=== PATIENT | female | born 1985 | race African-American/Black ===

== ENCOUNTER 2022-04-10 06:57 | Emergency (ER) | payer OTHER ==
[2022-04-10] MEDS ORDERED: ACET/COD 300 MG/30 MG STARTER PACK 6 TAB BTL PO STA (07:13)
--- NOTE | 2022-04-10 07:15 | ED ---
ENT HPI - General Chief complaint: Dental/Oral Stated complaint: Dental Pain, Swelling Time Seen by Provider: 04/10/22 06:59 Source: patient, RN notes reviewed Mode of arrival: ambulatory Limitations: no limitations - History of Present Illness Initial comments: 37-year-old female presents emergency from chief complaint right lower dental pain. Patient states symptoms started over nighttime. Patient states she has swelling, pain right lower. Patient has known bad tooth in the back. Patient states she has appointment with her dentist on the of this month. Patient reports prior issues with pain meds and which she states is only when she mixed pain meds. Patient denies any. Chills and night sweats no difficulty swallowing no other associated complaints. - Related Data Home Medications Medication Instructions Recorded Confirmed Hydrocodone/Acetaminophen [[place] 1 tab PO Q6H 11/01/13 12/29/13 5-325] Sertraline [Zoloft] 50 mg PO DAILY 12/09/13 12/29/13 Previous Rx's Medication Instructions Recorded Ibuprofen [Motrin] 600 mg PO Q8HR PRN #20 tab 04/10/22 Penicillin V Potassium [Pen Vee K] 500 mg PO QID #40 tablet 04/10/22 Allergies Allergy/AdvReac Type Severity Reaction Status Date / Time acetaminophen [From Vicodin] Allergy Unknown Verified 04/10/22 06:59 hydrocodone bitartrate Allergy Unknown Verified 04/10/22 06:59 [From Vicodin] sulfamethoxazole Allergy Unknown Verified 04/10/22 06:59 [From Bactrim] tramadol Allergy Unknown Verified 04/10/22 06:59 trimethoprim [From Bactrim] Allergy Unknown Verified 04/10/22 06:59 Review of Systems ROS Statement: Those systems with pertinent positive or pertinent negative responses have been documented in the HPI. ROS Other: All systems not noted in ROS Statement are negative. Past Medical History Past Medical History: No Reported History History of Any Multi-Drug Resistant Organisms: None Reported Past Surgical History: Orthopedic Surgery Past Psychological History: Anxiety, Depression Smoking Status: Never smoker Past Alcohol Use History: None Reported Past Drug Use History: Marijuana General Exam Limitations: no limitations General appearance: alert, in no apparent distress Head exam: Present: atraumatic, normocephalic, normal inspection Eye exam: Present: normal appearance, PERRL, EOMI. Absent: scleral icterus, conjunctival injection, periorbital swelling ENT exam: Present: mucous membranes moist, TM's normal bilaterally, normal external ear exam. Absent: normal oropharynx (Right-sided facial swelling, right lower impacted molar with no drainable abscess, dental erosion), mucous membranes dry Neck exam: Present: normal inspection, full ROM. Absent: tenderness, meningismus, lymphadenopathy Respiratory exam: Present: normal lung sounds bilaterally. Absent: respiratory distress, wheezes, rales, rhonchi, stridor Cardiovascular Exam: Present: regular rate, normal rhythm, normal heart sounds. Absent: systolic murmur, diastolic murmur, rubs, gallop, clicks Course Vital Signs 04/10/22 06:59 Temperature 98.2 F Pulse Rate 89 Respiratory 16 Rate Blood Pressure 149/106 O2 Sat by Pulse 98 Oximetry Medical Decision Making - Medical Decision Making 37-year-old presented for dental pain. Patient has underlying dental infection. Patient was started on Pen-Vee K, given pain control she has a follow-up with her dentist return parameters were discussed. Disposition Clinical Impression: Impacted molar, Toothache Disposition: HOME SELF-CARE Instructions (If sedation given, give patient instructions): Dental Abscess (ED) Additional Instructions: Please return to the Emergency Department if symptoms worsen or any other concerns. Prescriptions: Ibuprofen [Motrin] 600 mg PO Q8HR PRN #20 tab PRN Reason: Pain Penicillin V Potassium [Pen Vee K] 500 mg PO QID #40 tablet Is patient prescribed a controlled substance at d/c from ED?: No Referrals: None,Stated [Primary Care Provider] - 1-2 days Time of Disposition: 07:11
[2022-04-10 07:32] VITALS: BP 156/107; PULSE 80; RESP 18; TEMP 98.3
== END 2022-04-10 07:34 | disposition home or self-care (01) ==
LOC: EC 06:57
DX: K01.1 Impacted teeth (principal); F41.9 Anxiety disorder, unspecified; F32.A Depression, unspecified; F12.90 Cannabis use, unspecified, uncomplicated; Z88.2 Allergy status to sulfonamides; Z88.6 Allergy status to analgesic agent; Z88.5 Allergy status to narcotic agent
CPT/HCPCS: 99282

== ENCOUNTER 2023-05-28 15:11 | Emergency (ER) | payer BC ==
[2023-05-28] MEDS ORDERED: KETOROLAC 15 MG/ML 1 ML VIAL IM STA (16:50)
--- NOTE | 2023-05-28 16:52 | ED ---
Extremity Problem HPI - General Stated complaint: Pain in left shoulder Time Seen by Provider: 05/28/23 16:42 Source: patient, RN notes reviewed - History of Present Illness Initial comments: Patient is a 38-year-old female presented ER with chief complaint of left shoulder pain. Patient states pain started last 05-19-23. Patient states it is a burning pulling sensation in her mid to upper back. Patient states it is made it difficult for her to move her left upper extremity. Patient denies any numbness or tingling. Patient denies any known trauma. Patient denies any neck pain, chest pain, shortness of breath, fevers, chills, night sweats. 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 Patient is been taking [id number] Tylenol and Motrin with no relief. She also has been icing and using heat. - Related Data Home Medications Medication Instructions Recorded Confirmed Hydrocodone/Acetaminophen [[place] 1 tab PO Q6H 11/01/13 12/29/13 5-325] Sertraline [Zoloft] 50 mg PO DAILY 12/09/13 12/29/13 Previous Rx's Medication Instructions Recorded Ibuprofen [Motrin] 600 mg PO Q8HR PRN #20 tab 04/10/22 Penicillin V Potassium [Pen Vee K] 500 mg PO QID #40 tablet 04/10/22 Cyclobenzaprine [Flexeril] 10 mg PO HS #10 tab 05/28/23 Allergies Allergy/AdvReac Type Severity Reaction Status Date / Time sulfamethoxazole Allergy Unknown Verified 05/28/23 16:52 [From Bactrim] tramadol Allergy Unknown Verified 05/28/23 16:52 trimethoprim [From Bactrim] Allergy Unknown Verified 05/28/23 16:52 Review of Systems ROS Statement: Those systems with pertinent positive or pertinent negative responses have been documented in the HPI. ROS Other: All systems not noted in ROS Statement are negative. Past Medical History Past Medical History: No Reported History History of Any Multi-Drug Resistant Organisms: None Reported Past Surgical History: Orthopedic Surgery Past Psychological History: Anxiety, Depression Smoking Status: Never smoker Past Alcohol Use History: None Reported Past Drug Use History: Marijuana General Exam General appearance: alert, in no apparent distress Head exam: Present: atraumatic, normocephalic, normal inspection Eye exam: Present: normal appearance, PERRL, EOMI. Absent: scleral icterus, conjunctival injection, periorbital swelling Neck exam: Present: normal inspection. Absent: tenderness, meningismus, lymphadenopathy Respiratory exam: Present: normal lung sounds bilaterally. Absent: respiratory distress, wheezes, rales, rhonchi, stridor Cardiovascular Exam: Present: regular rate, normal rhythm, normal heart sounds. Absent: systolic murmur, diastolic murmur, rubs, gallop, clicks Extremities exam: Present: other (Limited range of motion of left upper extremity due to pain. No rashes or erythema present. 2+ left radial pulse.) Back exam: Present: tenderness (Left trapezius muscle) Course Vital Signs 05/28/23 05/28/23 16:45 19:18 Temperature 98.8 F 98 F Pulse Rate 89 79 Respiratory 18 16 Rate Blood Pressure 146/104 128/78 O2 Sat by Pulse 100 98 Oximetry Medical Decision Making - Medical Decision Making Was pt. sent in by a medical professional or institution (, PA, JACKHAMMER SPLITTER OPERATOR, urgent care, hospital, or [facility]...) When possible be specific @ -No Did you speak to anyone other than the patient for history (EMS, parent, family, police, friend...)? What history was obtained from this source @ -No Did you review nursing and triage notes (agree or disagree)? Why? @ -I reviewed and agree with nursing and triage notes Were old charts reviewed (outside hosp., previous admission, EMS record, old EKG, old radiological studies, urgent care reports/EKG's, [facility] records)? Report findings @ -No old charts were reviewed Differential Diagnosis (chest pain, altered mental status, abdominal pain women, abdominal pain men, vaginal bleeding, weakness, fever, dyspnea, syncope, headache, dizziness, GI bleed, back pain, seizure, CVA, palpatations, mental health, musculoskeletal)? @ -Differential Back Pain: Strain, zoster, cauda equina syndrome, epidural abscess, vertebral osteomyelitis, discitis, fracture, subluxation, disc herniation, DJD, spinal stenosis, dissection, AAA, pancreatitis, peptic ulcer disease, pyelonephritis, kidney stone, this is not meant to be an all-inclusive list. EKG interpreted by me (3pts min.). @ -None X-rays interpreted by me (1pt min.). @ -Cervical spine x-ray shows moderate spondylitic changes throughout especially in the mid to low cervical spine. There is reversal of the normal cervical lordosis. Left shoulder x-ray shows no acute osseous abnormality. CT interpreted by me (1pt min.). @ -None done U/S interpreted by me (1pt. min.). @ -None done What testing was considered but not performed or refused? (CT, X-rays, U/S, labs)? Why? @ -None What meds were considered but not given or refused? Why? @ -None Did you discuss the management of the patient with other professionals (professionals i.e. Dr., PA, JACKHAMMER SPLITTER OPERATOR, lab, RT, psych nurse, social media assistant, instructor military science, teacher, digital marketing officer, director of casework services)? Give summary @ -No Was smoking cessation discussed for >3mins.? @ -No Was critical care preformed (if so, how long)? @ -No Were there social determinants of health that impacted care today? How? (Homelessness, low income, unemployed, alcoholism, drug addiction, transportation, low edu. Level, literacy, decrease access to med. care, intermediate, rehab)? @ -No Was there de-escalation of care discussed even if they declined (Discuss DNR or withdrawal of care, Hospice)? DNR status @ -No What co-morbidities impacted this encounter? (DM, HTN, Smoking, COPD, CAD, Cancer, CVA, ARF, Chemo, Hep., AIDS, mental health diagnosis, sleep apnea, morbid obesity)? @ -None Was patient admitted / discharged? Hospital course, mention meds given and route, prescriptions, significant lab abnormalities, going to OR and other pertinent info. @ -Discharge. Patient is a 38-year-old female presented ER with chief complaint of left shoulder pain. Upon examination, patient's vital signs are stable. Physical exam was significant for limited active range of motion of left shoulder due to pain. Patient was neurovascularly intact. There is pain to palpation of left trapezius muscle. Patient denied any chest pain or shortness of breath. Patient received IM Toradol for pain control, with improvement. Cervical spine x-ray shows moderate spondylitic changes throughout especially in the mid to low cervical spine. There is reversal of the normal cervical lordosis. Left shoulder x-ray shows no acute osseous abnormality. I discussed imaging findings with the patient. I encouraged her to continue to take [id number] Tylenol and Motrin. I also advised to massage and continued motion. Patient will be prescribed Flexeril. I educated patient on side effects of muscle relaxers. Patient will be discharged in stable condition with follow-up to PCP. Return parameters were discussed. Patient expressed understanding and agreement with care plan. Undiagnosed new problem with uncertain prognosis? @ -No Drug Therapy requiring intensive monitoring for toxicity (Heparin, Nitro, Insulin, Cardizem)? @ -No Were any procedures done? @ -No Diagnosis/symptom? @ -Muscle spasm Acute, or Chronic, or Acute on Chronic? @ -Acute Uncomplicated (without systemic symptoms) or Complicated (systemic symptoms)? @ -Uncomplicated Side effects of treatment? @ -No Exacerbation, Progression, or Severe Exacerbation? @ -No Poses a threat to life or bodily function? How? (Chest pain, USA, CT, pneumonia, PE, COPD, DKA, ARF, appy, cholecystitis, CVA, Diverticulitis, Homicidal, Suicidal, threat to staff... and all critical care pts) @ -No - Radiology Data Radiology results: report reviewed, image reviewed Disposition Clinical Impression: Muscle spasm Disposition: HOME SELF-CARE Condition: Stable Instructions (If sedation given, give patient instructions): Muscle Spasm (ED) Additional Instructions: Please continue to use [id number] Tylenol and Motrin for pain control. Please be aware that Flexeril may make you drowsy.Please return to the Emergency Department if symptoms worsen or any other concerns. Prescriptions: Cyclobenzaprine [Flexeril] 10 mg PO HS #10 tab Is patient prescribed a controlled substance at d/c from ED?: No Referrals: Richar Smith MD [Primary Care Provider] - 1-2 days Time of Disposition: 18:44
--- NOTE | 2023-05-28 18:06 | XR ---
EXAMINATION TYPE: XR cervical spine 5 views comp, XR shoulder complete 3 views LT DATE OF EXAM: 05/28/2023 COMPARISON: None HISTORY: 38-year-old female left shoulder pain FINDINGS: Cervical spine: No predental space widening or prevertebral soft tissue swelling. Moderate dissection plate degenerat elizabeth change C5-C7 levels. Reversal of the normal cervical lordosis but with preserved alignment. Facet and uncovertebral joint arthropathy mid to lower cervical spine. On the right, mild bony neuroforami nal narrowing C5-C6. Limited obliquity for assessment of the left-sided neural foramen. Normal odonto id view. Left shoulder: AC joint is congruent and intact. Subacromial space is preserved. No tendinous or bursal calcificatio ns. No acute fracture, subluxation, or dislocation. IMPRESSION: 1. Cervical spine: Moderate spondylotic change throughout, especially mid to lower cervical spine. Sa tisfactory alignment. Reversal of the normal cervical lordosis could be positional or due to muscle s pasm. 2. Left shoulder: No acute osseous abnormality seen.
[2023-05-28 19:32] VITALS: BP 128/78; PULSE 79; RESP 16; TEMP 98
== END 2023-05-28 19:18 | disposition home or self-care (01) ==
LOC: EC 15:11
DX: M62.838 Other muscle spasm (principal); F41.9 Anxiety disorder, unspecified; F32.A Depression, unspecified; F12.90 Cannabis use, unspecified, uncomplicated; Z79.899 Other long term (current) drug therapy; Z88.2 Allergy status to sulfonamides; Z88.5 Allergy status to narcotic agent; Z88.1 Allergy status to other antibiotic agents
CPT/HCPCS: 72050; 73030; 99283; 96372; J1885

== ENCOUNTER → 2024-04-08 | Outpatient (CLI) | payer BC ==
--- NOTE | 2024-04-09 20:08 | US ---
EXAMINATION TYPE: US transvaginal DATE OF EXAM: 04/08/2024 COMPARISON: 10/18/2012 CLINICAL INDICATION: Female, 39 years old with history of N93.9 ABN UTERAN BLEEDING; LLQ pain x 6 mo nths; Hx depo use x 15 years dc about 1.5 years ago; irregular menses TECHNIQUE: Transvaginal (TV). Doppler imaging: Not performed. FINDINGS: Date of LMP: Unknown EXAM MEASUREMENTS: Uterus: 8.4 x 3.8 x 4.7 cm Endometrial Stripe: 0.2 cm Right Ovary: 2.1 x 1.6 x 2.7 cm Left Ovary: 3.4 x 2.1 x 3.0 cm 1. Uterus: Anteverted Multiple echogenic areas seen throughout; heterogenous contour 2. Endometrium: WNL 3. Right Ovary: Multiple echogenic areas seen thoughout 4. Left Ovary: WNL 5. Bilateral Adnexa: WNL 6. Posterior cul-de-sac: WNL IMPRESSION: Nonspecific heterogeneity of the uterine myometrium. Multiple echogenic foci seen within the right ov tavia could reflect calcifications or small dermoid [facility], , 04/09/2024 8:05 PM
--- NOTE | 2024-04-15 12:49 | MM ---
Reason for Exam: Screening (asymptomatic). Baseline mammogram. Patient History: Menarche at age 11. First Full-Term at age 18. Premenopausal. Paternal grandmother had breast cancer, age 50. Last menstrual period: 04/01/2024 Risk Values: Malia 5 year model risk: 0.5%. NCI Lifetime model risk: 9.7%. Prior Study Comparison: Patient's first Mammogram. Tissue Density: There are scattered areas of fibroglandular density. Findings: Analyzed By CAD. Right breast: There is no suspicious group of microcalcifications or new suspicious mass. Left breast: Asymmetry left breast CC view slightly lateral middle depth. 8.0 cm from the nipple. Overall Assessment: Incomplete: need additional imaging evaluation, BI-RAD 0 Management: Diagnostic Mammogram of the left breast. [facility] will attempt to contact patient to return for supplemental views and ultrasound if indicated. Patient should continue monthly self-breast exams. A clinical breast exam by your physician is recommended on an annual basis. This exam should not preclude additional follow-up of suspicious palpable abnormalities. Note on Malia scores and lifetime risk: 1. A Malia score greater than 3% is considered moderate risk. If this is the case, consider specialist referral to assess eligibility for a risk reducing agent. 2. If overall lifetime risk for the development of breast cancer is 20% or higher, the patient may qualify for future screening with alternating mammogram and breast MRI. [facility], , 04/15/2024 12:46 PM. Electronically signed and approved by: Claudio Ramos DO
== END | disposition home or self-care (01) ==
LOC: RADMAMWWP 12:19
PROVIDERS: ATTEND Family Medicine
DX: Z12.31 Encounter for screening mammogram for malignant neoplasm of breast (principal); N93.9 Abnormal uterine and vaginal bleeding, unspecified; Z80.3 Family history of malignant neoplasm of breast; R92.323 Mammographic fibroglandular density, bilateral breasts; N83.8 Other noninflammatory disorders of ovary, fallopian tube and broad ligament; N92.6 Irregular menstruation, unspecified
CPT/HCPCS: 76830; 77063; 77067

== ENCOUNTER → 2024-04-26 | Outpatient (CLI) | payer BC ==
--- NOTE | 2024-04-26 08:33 | MM ---
Reason for Exam: Additional evaluation requested from abnormal screening. Last screening mammogram was performed less than 1 month ago. Patient History: Menarche at age 11. First Full-Term at age 18. Premenopausal. Paternal grandmother had breast cancer, age 50. Risk Values: Malia 5 year model risk: 0.5%. NCI Lifetime model risk: 9.7%. Prior Study Comparison: 04/08/2024 Bilateral MG 3D screening mammo w/cad, [facility]. Tissue Density: Left: There are scattered areas of fibroglandular density. Findings: Analyzed By CAD. A nodular 1 cm asymmetric density persists on the lateral view with a circumscribed appearance, approximately 3:00 position, but becomes less defined on spot 3-D CC view. Further ultrasound evaluation is recommended. Overall Assessment: Incomplete: need additional imaging evaluation, BI-RAD 0 Management: Diagnostic Breast Ultrasound of the left breast. [facility], , 04/26/2024 8:29 AM. Electronically signed and approved by: Isidro Winn M.D. Radiologist
--- NOTE | 2024-04-26 09:16 | USB ---
Reason for Exam: Additional evaluation requested from abnormal screening. Patient History: Menarche at age 11. First Full-Term at age 18. Premenopausal. Paternal grandmother had breast cancer, age 50. Risk Values: Malia 5 year model risk: 0.5%. NCI Lifetime model risk: 9.7%. Prior Study Comparison: 04/08/2024 Bilateral MG 3D screening mammo w/cad, [facility]. Findings: The axilla of the left breast and the retroareolar of the left breast were scanned. Targeted ultrasound to enter o'clock position left breast including scanning of the subareolar region and axilla. At the 3:00 position, 4 cm from the nipple, there is a benign 10 x 9 x 3 mm cyst. Likely mammographic correlate. No other solid or cystic lesion or axillary lymphadenopathy. Overall Assessment: Probably benign, BI-RAD 3 Management: Diagnostic Mammogram of the left breast in 6 months. A clinical breast exam by your physician is recommended on an annual basis and results should be correlated with mammographic findings. This exam should not preclude additional follow-up of suspicious palpable abnormalities. Results were given to the patient verbally at the time of exam. [facility], , 04/26/2024 9:12 AM. Electronically signed and approved by: Isidro Winn M.D. Radiologist
== END | disposition home or self-care (01) ==
LOC: RADMAMWWP 08:03
PROVIDERS: ATTEND Family Medicine
DX: R92.8 Other abnormal and inconclusive findings on diagnostic imaging of breast (principal); R92.323 Mammographic fibroglandular density, bilateral breasts; Z80.3 Family history of malignant neoplasm of breast
CPT/HCPCS: 77061; 77065

== ENCOUNTER 2024-12-24 14:21 | Emergency (ER) | payer BC ==
--- NOTE | 2024-12-24 15:06 | XR ---
EXAMINATION TYPE: XR ankle complete LT, XR foot complete LT DATE OF EXAM: 12/24/2024 3:01 PM COMPARISON: None. CLINICAL INDICATION: Female, 39 years old with history of Injury; [facility], pain TECHNIQUE: XR ankle complete LT, XR foot complete LT; ankle is imaged in frontal, lateral and obliqu e projections. FINDINGS: Age-indeterminate possible chronic fracture deformity of the fifth digit proximal phalanx shaft. No a cute fracture or dislocation involving the left ankle. No additional acute fracture or dislocation of the left foot. Tarsal alignment appears maintained. Tibiotalar joint and talar dome are acutely unre markable. Soft tissue swellings are in the left ankle. IMPRESSION: Left ankle: Left ankle soft tissue swelling without acute fracture or dislocation. Left foot: Age-indeterminate possible chronic fracture deformity of the fifth digit proximal phalanx shaft. Kenny mmend clinical correlation with point tenderness. [facility], , 12/24/2024 3:04 PM
--- NOTE | 2024-12-24 15:51 | ED ---
General Adult HPI - General Chief complaint: Extremity Injury, Lower Stated complaint: L foot injury Time Seen by Provider: 12/24/24 14:40 Source: patient, RN notes reviewed Mode of arrival: ambulatory Limitations: no limitations - History of Present Illness Initial comments: 39-year-old female presenting to the emergency department with complaints of le ft foot pain. Patient states that she was cleaning her house when she stubbed her toe on the entertainment center in her living room. She denies falling or other injuries at the time of the event. Is complaining of pain to the fifth digit. Patient is able to ambulate however this causes mild pain. - Related Data Home Medications Medication Instructions Recorded Confirmed Hydrocodone/Acetaminophen [[place] 1 tab PO Q6H 11/01/13 12/29/13 5-325] Sertraline [Zoloft] 50 mg PO DAILY 12/09/13 12/29/13 Previous Rx's Medication Instructions Recorded Ibuprofen [Motrin] 600 mg PO Q8HR PRN #20 tab 04/10/22 Penicillin V Potassium [Pen Vee K] 500 mg PO QID #40 tablet 04/10/22 Cyclobenzaprine [Flexeril] 10 mg PO HS #10 tab 05/28/23 Allergies Allergy/AdvReac Type Severity Reaction Status Date / Time sulfamethoxazole Allergy Unknown Verified 12/24/24 14:39 [From Bactrim] tramadol Allergy Unknown Verified 12/24/24 14:39 trimethoprim [From Bactrim] Allergy Unknown Verified 12/24/24 14:39 Review of Systems ROS Statement: Those systems with pertinent positive or pertinent negative responses have been documented in the HPI. ROS Other: All systems not noted in ROS Statement are negative. Past Medical History Past Medical History: No Reported History History of Any Multi-Drug Resistant Organisms: None Reported Past Surgical History: Orthopedic Surgery Additional Past Surgical History / Comment(s): right ankle, right knee and right arm. Past Psychological History: Anxiety, Depression Smoking Status: Never smoker Past Alcohol Use History: None Reported Past Drug Use History: Marijuana General Exam Limitations: no limitations Neck exam: Present: normal inspection. Absent: tenderness, meningismus, lymphadenopathy Respiratory exam: Present: normal lung sounds bilaterally. Absent: respiratory distress, wheezes, rales, rhonchi, stridor Cardiovascular Exam: Present: regular rate, normal rhythm, normal heart sounds. Absent: systolic murmur, diastolic murmur, rubs, gallop, clicks GI/Abdominal exam: Present: soft, normal bowel sounds. Absent: distended, tenderness, guarding, rebound, rigid Left Foot/Toe exam: Present: tenderness, swelling, ecchymosis Neurovascular tendon exam: Present: no vascular compromise Gait: observed and limited by pain Back exam: Present: normal inspection Course Vital Signs 12/24/24 14:36 Temperature 98.1 F Pulse Rate 77 Respiratory 20 Rate Blood Pressure 128/85 O2 Sat by Pulse 99 Oximetry Medical Decision Making - Medical Decision Making Was pt. sent in by a medical professional or institution (, PA, MANAGER OF HEALTH, urgent care, hospital, or long term...) When possible be specific @ -No Did you speak to anyone other than the patient for history (EMS, parent, family, police, friend...)? What history was obtained from this source @ -No Did you review nursing and triage notes (agree or disagree)? Why? @ -I reviewed and agree with nursing and triage notes Were old charts reviewed (outside hosp., previous admission, EMS record, old EKG, old radiological studies, urgent care reports/EKG's, long term records)? Report findings @ -No old charts were reviewed Differential Diagnosis (chest pain, altered mental status, abdominal pain women, abdominal pain men, vaginal bleeding, weakness, fever, dyspnea, syncope, headache, dizziness, GI bleed, back pain, seizure, CVA, palpatations, mental health, musculoskeletal)? @ -Differential Musculoskeletal Muscular strain, contusion, ligament sprain, fracture, arthritis, septic arthritis, bursitis, cellulitis, muscle spasm, nerve compression, DVT, arterial occlusion, herpes zoster, electrolyte abnormality, tumor.... This is not meant to be in all inclusive list EKG interpreted by me (3pts min.). @ -none X-rays interpreted by me (1pt min.). @ -X-ray of the left foot and ankle reveals possible chronic fracture deformity of the fifth digit proximal phalanx shaft CT interpreted by me (1pt min.). @ -None done U/S interpreted by me (1pt. min.). @ -None done What testing was considered but not performed or refused? (CT, X-rays, U/S, labs)? Why? @ -None What meds were considered but not given or refused? Why? @ -None Did you discuss the management of the patient with other professionals (professionals i.e. Dr., PA, MANAGER OF HEALTH, lab, RT, psych nurse, social work msw, infant lead teacher, teacher, correction officer, correctional counselor/case manager)? Give summary @ -No Was smoking cessation discussed for >3mins.? @ -No Was critical care preformed (if so, how long)? @ -No Were there social determinants of health that impacted care today? How? (Homelessness, low income, unemployed, alcoholism, drug addiction, transportation, low edu. Level, literacy, decrease access to med. care, intermediate, rehab)? @ -No Was there de-escalation of care discussed even if they declined (Discuss DNR or withdrawal of care, Hospice)? DNR status @ -No What co-morbidities impacted this encounter? (DM, HTN, Smoking, COPD, CAD, Cancer, CVA, ARF, Chemo, Hep., AIDS, mental health diagnosis, sleep apnea, morbid obesity)? @ -None Was patient admitted / discharged? Hospital course, mention meds given and route, prescriptions, significant lab abnormalities, going to OR and other pertinent info. @ -Discharge. 39-year-old female presenting with pain to the left foot. X-ray reveals a deformity of the fifth digit proximal phalanx shaft. She is provided with pain medication and a walking shoe and instructed follow-up with av specialist. Case discussed with my attending Dr. Fatima Undiagnosed new problem with uncertain prognosis? @ -No Drug Therapy requiring intensive monitoring for toxicity (Heparin, Nitro, Insulin, Cardizem)? @ -No Were any procedures done? @ -No Diagnosis/symptom? @ -proximal phalanx shaft Acute, or Chronic, or Acute on Chronic? @ -acute Uncomplicated (without systemic symptoms) or Complicated (systemic symptoms)? @ -uncomplicated Side effects of treatment? @ -No Exacerbation, Progression, or Severe Exacerbation? @ -No Poses a threat to life or bodily function? How? (Chest pain, [place], CA, pneumonia, PE, COPD, DKA, ARF, appy, cholecystitis, CVA, Diverticulitis, Homicidal, Suicidal, threat to staff... and all critical care pts) @ -No Disposition Clinical Impression: Fracture of proximal phalanx of toe of left foot Disposition: HOME SELF-CARE Condition: Good Instructions (If sedation given, give patient instructions): Toe Fracture (ED) Additional Instructions: Please return to the Emergency Department if symptoms worsen or any other concerns. Continue to take Tylenol and/or Motrin as needed for pain relief. Rest, ice, elevate the left foot. Is patient prescribed a controlled substance at d/c from ED?: No Referrals: None,Stated [Primary Care Provider] - 1-2 days Akbar Frederick DO [Doctor of Osteopathic Medicine] - 1-2 days Time of Disposition: 15:53
[2024-12-24] MEDS: Acetaminophen-Codeine 300-30mg TAB PO STA (17:08)
[2024-12-24 17:12] VITALS: BP 121/88; PULSE 69; RESP 16; TEMP 98.8
== END 2024-12-24 17:31 | disposition home or self-care (01) ==
LOC: EC 14:21
DX: S92.512A Displaced fracture of proximal phalanx of left lesser toe(s), initial encounter for closed fracture (principal); Z88.1 Allergy status to other antibiotic agents; Z88.2 Allergy status to sulfonamides; Z88.5 Allergy status to narcotic agent; W22.8XXA Striking against or struck by other objects, initial encounter
CPT/HCPCS: 99283